=== PATIENT | female | born 1975 | race Caucasian/White ===

== ENCOUNTER 2017-10-23 08:21 | Emergency (ER) | payer MEDICAID ==
[~2017-10-23] VITALS: Ht 162.6 cm; Wt 65.8 kg
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
[2017-10-23 08:30] VITALS: BP 111/76
[2017-10-23] MEDS ORDERED: Ketorolac 30mg Inj IV ONE (08:30)
--- NOTE | 2017-10-23 09:31 | Diagnostic Imaging Report ---
Indication: Headache and neck pain Technique: Continuous helical CT scanning of the head was performed without intravenous contrast material. Axial and coronal 5 mm sections were generated. Radiation dose was minimized using automated exposure control Dose: Total Dose Length Product - DLP 1305.[address] Dose Index - CTDIvol(s) 70.38 mGy. Comparison: none Findings: The ventricular system is normal in size and configuration. There is no shift of midline structures. No abnormal extra-axial fluid collections are noted. There is no evidence of intracerebral bleeding. No other abnormal high or low density areas are noted within the brain. Intact calvarium. Minimal bilateral ethmoid sinus mucosal disease. Unremarkable orbits. Mastoids are clear Impression: Normal CT scan of the head without contrast material. Incidental finding of minimal ethmoid disease The CT scanner at [facility] is accredited by the [employer] and the scans are performed using protocols designed to limit radiation exposure to as low as reasonably achievable to attain images of sufficient resolution adequate for diagnostic evaluation.
--- NOTE | 2017-10-23 09:35 | Diagnostic Imaging Report ---
Indication: Neck pain Technique: Spiral acquisitions obtained through the cervical spine. No IV contrast utilized. Multiplanar reconstructions were generated. Total dose length product 248.42 mGycm. CTDIvol(s) 12.94 mGy. Dose reduction achieved using automated exposure control. Comparison: none Findings: No acute fractures. No dislocations. Normal bony alignment. No prevertebral soft tissue swelling. The disc spaces are preserved. No significant disc bulge or protrusion, spinal stenosis, or neural foraminal stenosis. There are borderline elongated C7 transverse processes, bordering on being small cervical ribs The included extra spinal soft tissues are unremarkable. Impression: No acute process The CT scanner at [facility] is accredited by the [employer] and the scans are performed using protocols designed to limit radiation exposure to as low as reasonably achievable to attain images of sufficient resolution adequate for diagnostic evaluation.
[2017-10-23] MEDS ORDERED: CYCLOBENZAPRINE10 MG ORAL (10:30)
[2017-10-23] MEDS ORDERED: IBUPROFEN600 MG ORAL (10:30)
[2017-10-23 10:32] LABS: APPEARANCE,URINE CLEAR; BILIRUBIN, URINE NEGATIVE (NEGATIVE); COLOR,URINE PALE YELLOW; GLUCOSE, URINE (UA) NEGATIVE (NEGATIVE); KETONES,URINE NEGATIVE (NEGATIVE); LEUKOCYTE ESTERASE ,URINE NEGATIVE (NEGATIVE); NITRITE,URINE NEGATIVE (NEGATIVE); PH,URINE 7 (4.5-8.0); PROTEIN,URINE NEGATIVE (NEGATIVE); UROBILINOGEN,URINE NORMAL MG/DL (0.0-1.0)
--- NOTE | 2017-10-23 10:44 | Diagnostic Imaging Report ---
Indication: Chest Technique: One view of the chest Comparison: none Findings: Inspiration is suboptimal. There is crowding of the central bronchovascular markings. There is central bronchial wall thickening. The lungs and pleural spaces are otherwise clear. The heart size is normal. There are cholecystectomy clips Impression: Suspect bronchitis. Negative for infiltrate
[2017-10-23 10:48] VITALS: BP 115/80
== END 2017-10-23 10:51 | disposition home or self-care (01) ==
LOC: EDBD 08:21 → EMR 08:30
DX: M54.2 Cervicalgia (principal); R51 Headache; R07.9 Chest pain, unspecified; V43.52XA Car driver injured in collision with other type car in traffic accident, initial encounter; Y92.410 Unspecified street and highway as the place of occurrence of the external cause
CPT/HCPCS: 70450; 71045; 72125; 81001; 81025; 96374; 99284; J1885